=== PATIENT | female | born 1975 | race Caucasian/White ===

== ENCOUNTER → 2018-01-16 | Outpatient (CLI) | payer OTHER ==
[~2018-01-16] MED LIST: ALBUTEROL INHAL17 GM IH; ANDROGEL1.25 GM TD; ERY-TAB500 MG PO; KEFLEX500 MG PO; LAMICTAL; MEDROLDOSEPACK PO; NOHOMEMEDICATIONS; NORCO 5-325 TA1 EACH PO; PRISTIQ50 MG; PROZAC; VICODIN 5-3001 EACH PO; WELLBUTRIN 100100 M1; ZPAK PO; [UNRECOGNIZED DRUG - OTHER]
== END | disposition home or self-care (01) ==
LOC: M.MRI 11:30
DX: M50.122 Cervical disc disorder at C5-C6 level with radiculopathy (principal)

== ENCOUNTER 2018-05-01 13:02 | Emergency (ER) | payer OTHER ==
[~2018-05-01] VITALS: Ht 165.1 cm; Wt 71.4 kg
[2018-05-01] MEDS ORDERED: CYMBALTA60 MG PO (13:13)
[2018-05-01] MEDS ORDERED: GABAPENTIN 100100 MG PO (13:14)
[2018-05-01 13:42] LABS: ABSOLUTE LYMPHOCYTES 1.2 thou/uL (0.8-5.3); ABSOLUTE MONOCYTES 0.6 thou/uL (0.0-1.2); ABSOLUTE NEUTROPHILS 6.2 thou/uL (1.6-8.1); BASOPHILS 0.3 %; EOSINOPHILS 0.6 %; HEMATOCRIT 37.7 % (37.0-47.0); HEMOGLOBIN 12.8 gm/dL (12.0-15.0); LYMPHOCYTES 14.9 %; MCH 31.4 pg (26.0-34.0); MCHC 33.9 g/dL (28.0-37.0); MCV 92.6 fL (80.0-100.0); MONOCYTES 7.7 %; MPV 8.5 fl. (7.2-11.1); NUCLEATED RBCS 0 /100WBC; PLATELET COUNT* 229 thou/uL (150-400); POLYS 76.5 %; RBC 4.07 mil/uL (4.20-5.00); RDW-CV 12.6 % (10.5-14.5); WBC 8.1 thou/uL (4.0-11.0)
[2018-05-01 13:49] LABS: ANION GAP 6 mmol/L (7-16); BUN 17 mg/dL (7-18); CALCIUM 8.8 mg/dL (8.5-10.1); CHLORIDE 105 mmol/L (98-107); CO2 30 mmol/L (21-32); CREATININE 0.8 mg/dL (0.6-1.3); GLUCOSE 87 mg/dL (70-99); POTASSIUM 3.9 mmol/L (3.5-5.1); SODIUM 141 mmol/L (136-145)
[2018-05-01 13:51] LABS: APTT 26.8 Seconds (25.0-31.3); PROTIME 10.4 Seconds (9.20-11.50)
[2018-05-01 14:10] LABS: ALBUMIN 3.5 g/dL (3.4-5.0); ALKALINE PHOSPHATASE 76 U/L (46-116); CK-MB MASS 1.5 ng/mL (<0.5-3.6); LIPASE 135 U/L (73-393); MAGNESIUM 1.6 mg/dL (1.8-2.4); NT-PRO BRAIN NAT PEPTIDE 46 pg/mL (<300); SGOT 22 U/L (15-37); SGPT 35 U/L (30-65); TOTAL BILIRUBIN 0.3 mg/dL (<0.1-1.0); TOTAL PROTEIN 6.4 g/dL (6.4-8.2); TROPONIN-I LEVEL <0.06 ng/mL (<0.06)
[2018-05-01 14:58] VITALS: BP 118/64
--- NOTE | 2018-05-03 11:14 | EKG ---
[place] [address] ELECTROCARDIOGRAM REPORT Name: MELONIE FIORE Ervin Room: [facility]#: [id number] Admission: 05/01/18 Attend Phys: Discharge: 05/01/18 Date of : 77 Report #: [id number] THIS REPORT FOR: //name// [facility] ED Test Date: 2018-05-01 Test Time: 13:08:06 Pat Name: MELONIE FIORE Department: Room: Gender: F Obstetrician: SHUBHAM : 1975 Requested By: Be Diane Order Number: [id number] MD: Robert Brambila Measurements Intervals [place]ina Rate: 75 P: 41 AR: 146 QRS: 22 QRSD: 102 T: 11 QT: 391 QTc: 437 Interpretive Statements Sinus rhythm RSR' in V1 or V2, right VCD or RVH Compared to ECG 03/14/2013 15:56:30 RSR' in V1 or V2 now present Electronically Signed On 05-03-2018 11:14:45 [employer]STATE PLANNING DIRECT[employer] by Robert Brambila [email or web address] <ELECTRONICALLY SIGNED> By: Robert Brambila MD, [facility] 05/03/18 1114 [id number] Robert Brambila MD, [facility] /EPI
== END 2018-05-01 14:59 | disposition home or self-care (01) ==
LOC: M.ERS 13:02
PROVIDERS: Family Medicine
DX: R07.89 Other chest pain (principal); Z90.89 Acquired absence of other organs; Z90.710 Acquired absence of both cervix and uterus; Z87.442 Personal history of urinary calculi; Z90.721 Acquired absence of ovaries, unilateral

== ENCOUNTER → 2018-05-16 | Outpatient (CLI) | payer OTHER ==
[~2018-05-16] MED LIST changes: +CYMBALTA60 MG PO; +GABAPENTIN 100100 MG PO
== END ==
LOC: M.MRI 05-10 07:30
DX: M75.22 Bicipital tendinitis, left shoulder (principal)

== ENCOUNTER → 2020-08-13 | Outpatient (CLI) | payer OTHER | LOC: M.LAB 16:27 | PROVIDERS: ATTEND Physician Assistant | DX: Z01.812 Encounter for preprocedural laboratory examination (principal); M23.303 Other meniscus derangements, unspecified medial meniscus, right knee; Z20.822 Contact with and (suspected) exposure to COVID-19 ==